=== PATIENT | female | born 1995 | race African-American/Black ===

== ENCOUNTER 2022-05-19 15:44 | Emergency (ER) | payer OTHER ==
[2022-05-19 16:11] VITALS: BP 150/90; PULSE 99; RESP 16; TEMP 99.4; BMI 30.7
== END 2022-05-19 16:45 | disposition home or self-care (01) ==
LOC: FER 15:44
DX: R10.9 Unspecified abdominal pain (principal); V59.40XA Driver of pick-up truck or van injured in collision with unspecified motor vehicles in traffic accident, initial encounter
CPT/HCPCS: 99281-25